=== PATIENT | female | born 1970 | race Caucasian/White ===

== ENCOUNTER 2018-11-16 17:46 | Emergency (ER) | payer OTHER ==
[~2018-11-16] VITALS: Ht 167.6 cm; Wt 59.0 kg
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
[2018-11-16 17:52] VITALS: BP 112/68
--- NOTE | 2018-11-16 17:53 | NUR ---
ED Nurse Note: PT BEING RESISTIVE TO CARE. [employer] REMAINS AT BEDSIDE TO REMIND PT OF NECESSITY OF MEDICAL CLEARANCE.
--- NOTE | 2018-11-16 17:59 | NUR ---
ED Nurse Note: BG RECHECKED: 75. ARAMIS KHAN AWARE. ORANGE JUICE GIVEN TO PT.
[2018-11-16 18:23] LABS: HEMATOCRIT 46.3 % (37.0-47.0); HEMOGLOBIN 14.9 G/DL (12.0-16.0); MEAN CORPUSCULAR VOLUME 77 FL (80-99); PLATELET COUNT 26 K/UL (150-450); RED BLOOD COUNT 6.01 M/UL (4.20-5.40); RED CELL DISTRIBUTION WIDTH 21.8 % (11.6-14.8); WHITE BLOOD COUNT 12.1 K/UL (4.8-10.8)
[2018-11-16 18:32] LABS: ANION GAP 10 mmol/L (5-15); BLOOD UREA NITROGEN 21 mg/dL (7-18); CARBON DIOXIDE 24 MMOL/L (21-32); CHLORIDE 105 MMOL/L (98-107); CREATININE 0.9 MG/DL (0.55-1.30); POTASSIUM 4.9 MMOL/L (3.5-5.1); SODIUM 139 MMOL/L (136-145)
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
--- NOTE | 2018-11-16 19:06 | NUR ---
ED Nurse Note: REPORT GIVEN TO JOSÉ STEVENS.
[2018-11-16] MEDS ORDERED: Acetaminophen 500mg (ES) tab ORAL ONE (19:15)
--- NOTE | 2018-11-16 19:35 | NUR ---
ED Nurse Note: Patient refused to sign DC papers, states that she needs names of all those peoples who was taking care of her in ER. States that she did not like services here [place] [facility] [place]
[2018-11-16 19:40] VITALS: BP 112/68
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
--- NOTE | 2018-11-17 12:11 | Cardiology Report ---
APPROVED REPORT EKG Measurement Heart [id number] Normal sinus rhythm Normal ECG
== END 2018-11-16 19:40 ==
LOC: EDBD 17:46 → EMR 18:03
DX: R42 Dizziness and giddiness (principal); R51 Headache; S00.93XA Contusion of unspecified part of head, initial encounter; V43.52XA Car driver injured in collision with other type car in traffic accident, initial encounter; Y92.481 Parking lot as the place of occurrence of the external cause; E11.9 Type 2 diabetes mellitus without complications; D64.9 Anemia, unspecified
CPT/HCPCS: 36415; 80048; 85007; 85025; 93005; 99283